=== PATIENT | male | born 1945 | race Caucasian/White ===

== ENCOUNTER 2016-06-02 10:08 | Outpatient (CLI) | payer MEDICARE | END 2016-06-02 10:09 | disposition home or self-care (01) | DX: C61 Malignant neoplasm of prostate (principal) ==

== ENCOUNTER → 2016-12-26 | Outpatient (CLI) | payer MEDICARE | LOC: LAB.WCP 08:00 | PROVIDERS: ATTEND Family Medicine | DX: C61 Malignant neoplasm of prostate (principal) | CPT/HCPCS: 36415; 84153 ==

== ENCOUNTER 2017-06-12 08:00 | Outpatient (CLI) | payer MEDICARE | END 2017-06-12 08:01 | disposition home or self-care (01) | LOC: LAB.WCP 08:00 | PROVIDERS: ATTEND Family Medicine | DX: C61 Malignant neoplasm of prostate (principal) | CPT/HCPCS: 36415; 84153 ==

== ENCOUNTER 2017-12-01 08:00 | Outpatient (CLI) | payer MEDICARE | END 2017-12-01 08:01 | disposition home or self-care (01) | LOC: LAB.WCP 08:00 | PROVIDERS: ATTEND Family Medicine | DX: C61 Malignant neoplasm of prostate (principal) | CPT/HCPCS: 36415; 84153 ==